=== PATIENT | female | born 1980 | race African-American/Black ===

== ENCOUNTER → 2020-01-22 | Outpatient (CLI) | payer OTHER ==
[~2020-01-22] MED LIST: IBUP-2030 PO
== END | disposition home or self-care (01) ==
LOC: LAB 12:37
PROVIDERS: ATTEND Obstetrics & Gynecology
DX: Z01.818 Encounter for other preprocedural examination (principal); Z11.59 Encounter for screening for other viral diseases
CPT/HCPCS: 87635; C9803

== ENCOUNTER 2020-01-25 07:16 | Inpatient (IN) | payer MEDICAID, OTHER ==
[~2020-01-25] VITALS: Ht 154.9 cm; Wt 77.6 kg
[2020-01-25] MEDS ORDERED: DEXT 5%/LR + PITOCIN 20UNITS/L 1,000 ML IV PRN (08:00)
[2020-01-25] MEDS ORDERED: MISOPROSTOL 100MCG TABLET PO PRN (08:00)
[2020-01-25] MEDS ORDERED: CARBOPROST TROMETHAMINE 250 MCG/ML AMPUL IM PRN (08:00)
[2020-01-25] MEDS ORDERED: METHYLERGONOVINE MALEATE 0.2 MG/ML IM PRN (08:00)
[2020-01-25 08:17] LABS: BASOPHILS % 0.2 % (0.0-2.0); EOSINOPHILS % 0.7 % (0.0-5.0); HEMATOCRIT. 29.8 % (36.0-48.0); HEMOGLOBIN. 10.3 g/dL (12.0-16.0); LYMPHOCYTES % 24.4 % (20.0-50.0); MEAN CORPUSCULAR HEMOGLOBIN 31.1 pg (28.0-32.0); MEAN CORPUSCULAR VOLUME 90.2 fL (81.0-99.0); MEAN PLATELET VOLUME 9.4 fl (7.4-10.4); MONOCYTES % 11.5 % (2.0-8.0); NEUTROPHILS % 63.2 % (40.0-76.0); PLATELET 166 x1000/uL (130-400); RED CELL DISTRIBUTION WIDTH 14.8 % (11.6-14.6)
[2020-01-25 08:25] LABS: CLARITY URINE CLEAR (CLEAR); COLOR URINE YELLOW (YELLOW); KETONES URINE NEGATIVE (NEGATIVE); LEUKOCYTE ESTERASE URINE 2+ (NEGATIVE); NITRITE URINE NEGATIVE (NEGATIVE); OCCULT BLOOD URINE NEGATIVE (NEGATIVE); PH URINE 6.5 (4.5-8.0); PROTEIN URINE 1+ (NEGATIVE); SPECIFIC GRAVITY URINE 1.018 (1.005-1.030); UROBILINOGEN URINE 0.2 E.U./dL (0.2-1.0)
[2020-01-25 08:34] LABS: PARTIAL THROMBOPLASTIN TIME 27.9 sec (23.4-31.0); PROTHROMBIN TIME 10.3 sec (9.6-11.0)
[2020-01-25] MEDS: LACTATED RINGERS 1,000 ML IV SCH (08:43)
[2020-01-25] MEDS ORDERED: CITRIC ACID/SODIUM CITRATE SOLN 30ML UDC PO ONE (08:45)
[2020-01-25 08:47] LABS: *AMPHETAMINES SCREEN URINE NEGATIVE (NEGATIVE); *BARBITURATES SCREEN URINE NEGATIVE (NEGATIVE); *BENZODIAZEPINES SCREEN URINE NEGATIVE (NEGATIVE); *COCAINE SCREEN URINE NEGATIVE (NEGATIVE)
[2020-01-25 08:48] LABS: CANNABINOID URINE SCREEN NEGATIVE (NEGATIVE); METHADONE URINE SCREEN NEGATIVE (NEGATIVE); OPIATES URINE SCREEN NEGATIVE (NEGATIVE); PHENCYCLIDINE URINE SCREEN NEGATIVE (NEGATIVE)
[2020-01-25 09:09] LABS: HEPATITIS B SURFACE ANTIGEN NEGATIVE
[2020-01-25] MEDS ORDERED: ONDANSETRON HCL 4MG/2ML INJ ONE (11:52)
[2020-01-25] MEDS ORDERED: OXYTOCIN 10 UNITS/ML 1ML ONE ×3 (11:52→14:07)
[2020-01-25] MEDS ORDERED: CEFAZOLIN SODIUM 1000MG/VIAL ONE (11:52)
[2020-01-25] MEDS ORDERED: KETOROLAC 60MG/2ML VIAL IM ONE (11:52)
[2020-01-25] MEDS ORDERED: FENTANYL CITRATE/PF 50MCG/ML 2ML VIAL ONE (12:43)
[2020-01-25] MEDS ORDERED: EPHEDRINE SULFATE 50MG/ML VIAL ONE (13:45)
[2020-01-25] MEDS ORDERED: DEXT 5%/LR + PITOCIN 20UNITS/L 1,000 ML IV SCH (14:38)
[2020-01-25] MEDS ORDERED: DIPHENHYDRAMINE 50MG/ML VIAL IV PRN ×2 (14:45→19:00)
[2020-01-25] MEDS ORDERED: MEPERIDINE HCL/PF 25MG/ML CPJ IV PRN (14:45)
[2020-01-25] MEDS ORDERED: FENTANYL CITRATE/PF 50MCG/ML 2ML VIAL IV PRN ×3 (14:45)
[2020-01-25] MEDS ORDERED: MORPHINE SULFATE 2 MG/ML CPJ (NOT FOR IM USE) IV PRN ×2 (14:45)
[2020-01-25] MEDS ORDERED: DEXAMETHASONE 10 MG/ML VIAL IV PRN (14:45)
[2020-01-25] MEDS ORDERED: DIPHENHYDRAMINE 50MG/ML VIAL IM PRN (14:45)
[2020-01-25] MEDS ORDERED: IBUPROFEN 400MG TABLET PO PRN (14:45)
[2020-01-25] MEDS ORDERED: KETOROLAC 30MG/ML VIAL IV PRN ×2 (14:45→20:00)
[2020-01-25] MEDS ORDERED: MORPHINE SULFATE 10 MG/ML CPJ IV PRN (14:45)
[2020-01-25] MEDS ORDERED: RHO(D) IMMUNE GLOBULIN 300 MCG/SYR IM PRN (14:45)
[2020-01-25] MEDS ORDERED: BISACODYL 10MG SUPP PR PRN (14:45)
[2020-01-25 17:00] VITALS: BP 108/64
[2020-01-25 17:45] VITALS: BP 99/69
[2020-01-25 19:30] VITALS: BP 103/67
[2020-01-26] VITALS: BP 95/57
[2020-01-26 04:00] VITALS: BP 99/58
[2020-01-26 06:29] LABS: BASOPHILS % 0.2 % (0.0-2.0); EOSINOPHILS % 0.1 % (0.0-5.0); HEMATOCRIT. 27.5 % (36.0-48.0); HEMOGLOBIN. 9.3 g/dL (12.0-16.0); LYMPHOCYTES % 11.3 % (20.0-50.0); MEAN CORPUSCULAR VOLUME 91.5 fL (81.0-99.0); MEAN PLATELET VOLUME 9.7 fl (7.4-10.4); MONOCYTES % 10.1 % (2.0-8.0); NEUTROPHILS % 78.3 % (40.0-76.0); PLATELET 144 x1000/uL (130-400); RED BLOOD CELL COUNT 3.01 mill/uL (4.2-5.4); RED CELL DISTRIBUTION WIDTH 14.9 % (11.6-14.6)
[2020-01-26] MEDS: LACTATED RINGERS 1,000 ML IV SCH (07:14)
[2020-01-26 08:00] VITALS: BP 96/50
[2020-01-26 12:00] VITALS: BP 98/59
[2020-01-26] MEDS: IBUPROFEN 800MG TABLET PO PRN (16:44)
[2020-01-26 17:19] VITALS: BP 100/66
[2020-01-26 19:30] VITALS: BP 102/54
[2020-01-27 04:00] VITALS: BP 109/71
[2020-01-27 08:00] VITALS: BP 99/63
[2020-01-27] MEDS: IBUPROFEN 800MG TABLET PO PRN (08:30)
[2020-01-27] MEDS ORDERED: IBUP-2030 PO (09:00)
== END 2020-01-27 11:40 | disposition home or self-care (01) | DRG 540 ==
LOC: OBSVTOIN 07:16 → 8 EST LDRP 07:16 → 8EST 17:19
PROVIDERS: ADMIT Obstetrics & Gynecology; ATTEND Obstetrics & Gynecology
PROC: 10D00Z1 Extraction of Products of Conception, Low, Open Approach (ICD-10-PCS; principal; 2020-01-25)
PROC: 0UB70ZZ Excision of Bilateral Fallopian Tubes, Open Approach (ICD-10-PCS; 2020-01-25)
DX: O34.211 Maternal care for low transverse scar from previous cesarean delivery (principal); O77.0 Labor and delivery complicated by meconium in amniotic fluid; Z3A.39 39 weeks gestation of pregnancy; Z37.0 Single live birth; Z82.49 Family history of ischemic heart disease and other diseases of the circulatory system; Z30.2 Encounter for sterilization
CPT/HCPCS: 36415; 80305; 81003; 85025; 86592; 86703; 86762; 86850; 86900; 86920; 87340; 88302; 88307; J0690; J1200; J1885; J2270; J2405; J3010; J3490